=== PATIENT | female | born 1960 | race American Indian/Alaskan Native ===

== ENCOUNTER 2021-10-05 09:22 | Inpatient (IN) | payer SELFPAY ==
[2021-10-05] MEDS ORDERED: HYDROmorphone 1 MG/1 ML INJ IV ONE ×2 (11:28→15:03)
[2021-10-05] MEDS ORDERED: SODIUM CHLORIDE 0.9% 1000 ML 1,000 ML IV ONE (11:28)
[2021-10-05] MEDS ORDERED: ONDANSETRON 4 MG/2 ML INJ IV ONE (11:28)
--- NOTE | 2021-10-05 11:36 | Emergency Department Report ---
ED Abdominal Pain HPI - General Chief Complaint: Abdominal Pain Stated Complaint: ABD PAIN Time Seen by Provider: 10/05/21 11:04 Source: EMS Mode of arrival: Ambulatory Limitations: No Limitations - History of Present Illness Initial Comments: 61-year-old [place] female presents emerged part with complaining of sudden onset of left lower quadrant abdominal pain associated with the knots/ball to the left lower quadrant area when the pain began pain is is dull and throbbing worse with palpation and range of motion is associated with nausea and occasi onal diarrhea. She reports no no fever, chills, sweats. No hemoptysis no hematemesis hematochezia. MD Complaint: abdominal pain -: Sudden, This morning Radiation: LLQ Severity: moderate, severe Quality: sharp Consistency: constant - Related Data Allergies Allergy/AdvReac Type Severity Reaction Status Date / Time cephalexin [From Keflex] Allergy Hives Verified 10/05/21 09:39 meperidine [From Demerol] Allergy Hives Verified 10/05/21 09:39 ED Review of Systems ROS: Stated complaint: ABD PAIN Other details as noted in HPI Comment: All other systems reviewed and negative ED Past Medical Hx - Past Medical History Hx Hypertension: Yes ED Physical Exam - General Limitations: No Limitations General appearance: alert, in no apparent distress - Head Head exam: Present: atraumatic, normocephalic - Eye Eye exam: Present: normal appearance, PERRL, EOMI Pupils: Present: normal accommodation - ENT ENT exam: Present: normal exam, normal orophraynx, mucous membranes moist, TM's normal bilaterally - Neck Neck exam: Present: normal inspection, full ROM - Respiratory Respiratory exam: Present: normal lung sounds bilaterally. Absent: respiratory distress, wheezes, rales, chest wall tenderness, accessory muscle use, decreased breath sounds - Cardiovascular Cardiovascular Exam: Present: regular rate, normal rhythm. Absent: bradycardia, tachycardia, systolic murmur, diastolic murmur, rubs, gallop - GI/Abdominal GI/Abdominal exam: Present: soft, tenderness (Significant tenderness to left lower quadrant mass is present. Appears to be a incarcerated hernia attempts were made to reduce however was unsuccessful in reduction), normal bowel sounds, mass, hernia (Left lower quadrant ventral). Absent: organomegaly, pulsatile mass - Extremities Exam Extremities exam: Present: normal inspection, full ROM, normal capillary refill. Absent: pedal edema - Back Exam Back exam: Present: normal inspection. Absent: CVA tenderness (R), CVA tenderness (L) - Neurological Exam Neurological exam: Present: alert, oriented X3, CN II-XII intact, normal gait - Psychiatric Psychiatric exam: Present: normal affect, normal mood - Skin Skin exam: Present: warm, dry, intact, normal color. Absent: rash, diaphoretic, erythema ED Course Vital Signs 10/05/21 10/05/21 10/05/21 09:36 13:15 15:14 Temperature 98.8 F Pulse Rate 85 Respiratory 16 20 20 Rate Blood Pressure 184/98 [Right] O2 Sat by Pulse 98 Oximetry 10/05/21 15:26 Temperature Pulse Rate 98 H Respiratory 18 Rate Blood Pressure 154/63 [Right] O2 Sat by Pulse 96 Oximetry - Consultations Consultation #1: 10/05/21 12:40 Case was discussed with the attending Dr. Ahuja who had [id number] with Ms. Ty and also evaluate evaluate her abdomen. He also attempted to reduce the hernia but also was unsuccessful. Consultation #2: 10/05/21 15:31 Case discussed with the surgeon Dr. Leo who is aware of the i incarcerated hernia to the left lower quadrant and inguinal region. Plan is for him to go to the patient's bedside to attempt a reduction in further recommendations will be made pending his success ED Medical Decision Making - Lab Data Result diagrams: 10/05/21 11:49 10/05/21 11:49 - Radiology Data Radiology results: [place] [address] Cat Scan Report Signed Patient: NILDA TY MR#: [id number] : 1960 Acct:[id number] Age/Sex: 61 / F ADM Date: 10/05/21 Loc: ED Attending Dr: Ordering Physician: TOÑA CROOKS Date of Service: 10/05/21 Procedure(s): CT abdomen pelvis w con Accession Number(s): [id number] cc: TOÑA CROOKS CT ABDOMEN AND PELVIS WITH CONTRAST INDICATION / CLINICAL INFORMATION: Abdominal Pain. TECHNIQUE: Axial CT images were obtained through the abdomen and pelvis after IV contrast. All CT scans at this location are performed using CT dose reduction for ALARA by means of automated exposure control. COMPARISON: None available. FINDINGS: LOWER CHEST: No significant abnormality. LIVER: No significant abnormality. GALLBLADDER: No stones PANCREAS: No significant abnormality. SPLEEN: No significant abnormality. ADRENALS: No significant abnormality. RIGHT KIDNEY / URETER: Punctate nonobstructive intrarenal calculus superior pole. LEFT KIDNEY / URETER: No significant abnormality. STOMACH / SMALL BOWEL: There is a small single loop of small bowel which is dilated, fluid-filled within the left inguinal hernia sac. The apparent loop of the small bowel is thick walled dilated and also hypoattenuating. Overall, findings are worrisome for incarcerated loop of small bowel within the left inguinal hernia sac. COLON: No significant abnormality. APPENDIX: No significant abnormality. PERITONEUM: No free fluid, free air or organized collection. LYMPH NODES: No significant adenopathy. AORTA / ARTERIES/ VEINS: No significant abnormality. URINARY BLADDER: No significant abnormality. REPRODUCTIVE ORGANS: Calcified fibroid within the uterus. ADDITIONAL FINDINGS: None. SKELETAL SYSTEM: No significant abnormality. IMPRESSION: 1. Left inguinal hernia containing loop of mildly dilated and fluid-filled small bowel chest demonstrate some hypoenhancement compared to the small bowel within the abdomen. There is dilatation of the afferent small bowel loop within the left lower quadrant of the abdomen, just proximal to the loop within the left inguinal hernia. Overall, findings are worrisome for incarcerated small bowel loop within the left inguinal hernia. Recommend correlation with physical exam findings and consultation with general surgery as clinically indicated. There is no evidence of pneumatosis within the herniated bowel loop at this time. 2. Other chronic findings as above. Signer Name: Rohith Cardozo MD Signed: 10/05/2021 1:42 PM Workstation Name: [id number] Transcribed By: SB Dictated By: ROHITH CARDOZO MD Electronically Authenticated By: ROHITH CARDOZO MD Signed Date/Time: 10/05/21 1342 DD/ 1336 TD/TT: Print - Medical Decision Making 41-year-old male female to the emerge from complaining of left lower quadrant abdominal pain suggestive with a mass which was suggestive of hernia. She was found to have a incarcerated hernia which was attempted to be reduced by myself and the attending Dr. Ahuja unsuccessfully. Later surgeon Dr. Leo came in and was able to reduce the hernia on his home after she received 2 rounds of 1 mg Dilaudid as well as antinausea medications. Due to the nature of her pain, the migration of her pain. Her lack of appetite and her hypokalemia Dr. Leo asked that she be admitted for observation so that he can evaluate her again tomorrow and advance her diet as tolerated. This case was discussed with the attending Dr. Veloz who did acknowledge the recommendation and agreed to the admission Critical care attestation.: If time is entered above; I have spent that time in minutes in the direct care of this critically ill patient, excluding procedure time. ED Disposition Clinical Impression: Abdominal pain, Hypokalemia, Incarcerated femoral hernia Disposition: ADMITTED INPATIENT Is pt being admited?: Yes Does the pt Need Aspirin: No Condition: Stable Instructions: Abdominal Pain (ED)
--- NOTE | 2021-10-05 11:43 | Event Note ---
Date of service: 10/05/21 Face to Face: For this encounter I have reviewed the PA/[employer] documentation, treatment plan, medical decision making, and I had face to face time with this patient. Patient present with abdominal pain. She states that the pain woke her at 3 AM. This is localized to the left lower quadrant. She has noticed a mass and fullness in this area. There is no trauma reported. On exam, patient has what appears to be a hernia in the left lower abdomen. This is firm and exquisitely tender for the patient. She has voluntary guarding. With pressure, this could not be reduced. IV, labs, and CT were ordered. We will keep the patient n.p.o. She will likely need surgery.
[2021-10-05 12:12] LABS: Basophils % (Auto) 0.3 % (0.0-1.8); Eosinophils % (Auto) 0.1 % (0.0-4.3); Hematocrit 46.2 % (30.3-42.9); Hemoglobin 14.7 gm/dl (10.1-14.3); Lymphocytes # (Auto) 0.8 K/mm3 (1.2-5.4); Lymphocytes % (Auto) 9.8 % (13.4-35.0); Mean Corpuscular HGB Conc 32 % (30-34); Mean Corpuscular Volume 85 fl (79-97); Monocytes # (Auto) 0.2 K/mm3 (0.0-0.8); Monocytes % (Auto) 2.2 % (0.0-7.3); Platelet Count 261 K/mm3 (140-440); Red Blood Count 5.45 M/mm3 (3.65-5.03); Red Cell Distribution Width 13.3 % (13.2-15.2)
[2021-10-05 12:31] LABS: Blood Urea Nitrogen 20 mg/dL (7-17); Calcium 9.8 mg/dL (8.4-10.2); Hemolysis Index 5
[2021-10-05 12:32] LABS: BUN/Creatinine Ratio 40
[2021-10-05] MEDS ORDERED: METOCLOPRAMIDE 10 MG/2 ML INJ IV ONE (13:05)
[2021-10-05] MEDS ORDERED: fentaNYL 100 MCG/2 ML INJ IV ONE (13:05)
[2021-10-05 13:19] LABS: Alanine Aminotransferase 17 units/L (7-56); Albumin 4.5 g/dL (3.9-5)
[2021-10-05 13:34] LABS: Bacteria,Urine 1+ /HPF (Negative); Bilirubin,Urine NEG (Negative); Blood,Urine NEG (Negative); Color,Urine Straw (Yellow); Mucus,Urine FEW /HPF; Protein,Urine <15 mg/dL mg/dL (Negative); Urobilinogen,Urine < 2.0 mg/dL (<2.0)
[2021-10-05 13:35] LABS: Bilirubin,Direct < 0.2 mg/dL (0-0.2)
--- NOTE | 2021-10-05 13:47 | Cat Scan Report ---
CT ABDOMEN AND PELVIS WITH CONTRAST INDICATION / CLINICAL INFORMATION: Abdominal Pain. TECHNIQUE: Axial CT images were obtained through the abdomen and pelvis after IV contrast. All CT sc ans at this location are performed using CT dose reduction for ALARA by means of automated exposure c ontrol. COMPARISON: None available. FINDINGS: LOWER CHEST: No significant abnormality. LIVER: No significant abnormality. GALLBLADDER: No stones PANCREAS: No significant abnormality. SPLEEN: No significant abnormality. ADRENALS: No significant abnormality. RIGHT KIDNEY / URETER: Punctate nonobstructive intrarenal calculus superior pole. LEFT KIDNEY / URETER: No significant abnormality. STOMACH / SMALL BOWEL: There is a small single loop of small bowel which is dilated, fluid-filled wit hin the left inguinal hernia sac. The apparent loop of the small bowel is thick walled dilated and al so hypoattenuating. Overall, findings are worrisome for incarcerated loop of small bowel within the l eft inguinal hernia sac. COLON: No significant abnormality. APPENDIX: No significant abnormality. PERITONEUM: No free fluid, free air or organized collection. LYMPH NODES: No significant adenopathy. AORTA / ARTERIES/ VEINS: No significant abnormality. URINARY BLADDER: No significant abnormality. REPRODUCTIVE ORGANS: Calcified fibroid within the uterus. ADDITIONAL FINDINGS: None. SKELETAL SYSTEM: No significant abnormality. IMPRESSION: 1. Left inguinal hernia containing loop of mildly dilated and fluid-filled small bowel chest demonst rate some hypoenhancement compared to the small bowel within the abdomen. There is dilatation of the afferent small bowel loop within the left lower quadrant of the abdomen, just proximal to the loop wi thin the left inguinal hernia. Overall, findings are worrisome for incarcerated small bowel loop with in the left inguinal hernia. Recommend correlation with physical exam findings and consultation with general surgery as clinically indicated. There is no evidence of pneumatosis within the herniated bow el loop at this time. 2. Other chronic findings as above. Signer Name: Rohith Cardozo MD Signed: 10/05/2021 1:42 PM Workstation Name: [id number]
[2021-10-05] MEDS: POTASSIUM CHLORIDE 10 MEQ 10 MEQ/100 ML BAG IV SCH ×3 (14:13→22:45)
[2021-10-05] MEDS ORDERED: HYDROmorphone 1 MG/1 ML INJ IV PRN (16:12)
[2021-10-05] MEDS ORDERED: ACETAMINOPHEN 325 MG TAB PO PRN (16:12)
[2021-10-05] MEDS ORDERED: ALBUTEROL 2.5 MG/3 ML NEBU IH PRN (16:12)
[2021-10-05] MEDS ORDERED: oxyCODONE /ACETAMINOPHEN 5-325MG TAB PO PRN (16:12)
--- NOTE | 2021-10-05 16:18 | History and Physical Report ---
History of Present Illness Chief complaint: My stomach hurts History of present illness: 61 YO Female with Obesity presents to ED for evaluation. Patient reports "my stomach hurts". Patient states that she experienced a sudden onset of abdominal pain localized to the left lower quadrant today with persistent and worsening symptoms over the same timeframe. Patient states that pain is 10/10, constant, dull in nature, worsened with palpation. EMS was notified and upon arrival the patient was subsequently transported to [facility] for further care and evaluation of the aforementioned symptoms. The patient was seen and evaluated in the emergency department. All lab and imaging studies reviewed. Patient underwent CT scan of the abdomen and pelvis and was found to have evidence of incarcerated left inguinal hernia. Surgical team consulted in ED with resultant successful reduction of the hernia. Patient placed in observation status and admitted to medical floor for further care due to increased risk of worsening symptoms. Patient denies fever, chills, chest pain, palpitation, productive cough, skin rash, recent ill contacts, ingestion of food/water from new or different sources, bright red blood per rectum, trauma, or known exposure to COVID-19. Past History Past Medical History: other (See HPI) Past Surgical History: No surgical history, Other (Reviewed) Social history: single. denies: smoking, alcohol abuse, prescription drug abuse Family history: hypertension Medications and Allergies Allergies Allergy/AdvReac Type Severity Reaction Status Date / Time cephalexin [From Keflex] Allergy Hives Verified 10/05/21 09:39 meperidine [From Demerol] Allergy Hives Verified 10/05/21 09:39 Active Meds: Active Medications Acetaminophen (Acetaminophen 325 Mg Tab) 650 mg PO Q4H PRN PRN Reason: Pain MILD(1-3)/Fever >100.5/CARRILLO Albuterol (Albuterol 2.5 Mg/3 Ml Nebu) 2.5 mg IH Q4HRT PRN PRN Reason: Shortness Of Breath Hydromorphone HCl (Hydromorphone 1 Mg/1 Ml Inj) 0.5 mg IV Q12H PRN PRN Reason: Pain , Severe (7-10) Potassium Chloride (Kcl 10meq/100ml) 10 meq in 100 mls @ 100 mls/hr IV Q1H SUJATA Stop: 10/05/21 16:59 Last Admin: 10/05/21 14:13 Dose: 100 mls/hr Sodium Chloride (Nacl 0.9% 1000 Ml) 1,000 mls @ 125 mls/hr IV DIRECT SUJATA Ondansetron HCl (Ondansetron 4 Mg/2 Ml Inj) 4 mg IV Q8H PRN PRN Reason: Nausea And Vomiting Oxycodone/Acetaminophen (Oxycodone /Acetaminophen 5-325mg Tab) 1 tab PO Q16H PRN PRN Reason: Pain, Moderate (4-6) Sodium Chloride (Sodium Chloride 0.9% 10 Ml Flush Syringe) 10 ml IV BID SUJATA Sodium Chloride (Sodium Chloride 0.9% 10 Ml Flush Syringe) 10 ml IV PRN PRN PRN Reason: LINE FLUSH Review of Systems Constitutional: no weight loss, no weight gain, no fever, no chills Ears, nose, mouth and throat: no ear pain, no tinnitis, no decreased hearing, no nose pain, no nasal discharge Breasts: no change in shape, no swelling Cardiovascular: no orthopnea, no palpitations, no edema, no syncope Respiratory: no cough, no excessive sputum, no hemoptysis, no dyspnea on exertion Gastrointestinal: abdominal pain, no nausea, no vomiting, no diarrhea, no BRBPR, no melena Genitourinary Female: no pelvic pain, no flank pain, no dysuria, no urinary frequency, no stress incontinence Rectal: no pain, no incontinence Musculoskeletal: no neck stiffness, no neck pain, no shooting arm pain, no low back pain, no leg numbness/tingling Integumentary: no rash, no redness, no sores, no jaundice Neurological: no head injury, no paralysis, no weakness, no tingling, no seizures Psychiatric: no anxiety, no change in sleep habits, no sleep disturbances, no hy persomnia, no suicidal ideation Endocrine: no cold intolerance, no polyphagia, no excessive thirst, no polydipsia, no polyuria, no excessive sweating Hematologic/Lymphatic: no easy bruising, no easy bleeding Allergic/Immunologic: no urticaria, no allergic rhinitis Exam - Constitutional Vitals: Temp Pulse Resp BP Pulse Ox 98.8 F 98 H 18 154/63 96 10/05/21 09:36 10/05/21 15:26 10/05/21 15:26 10/05/21 15:26 10/05/21 15:26 General appearance: Present: mild distress - EENT Eyes: Present: PERRL ENT: hearing intact, clear oral mucosa - Neck Neck: Present: supple, normal ROM - Respiratory Respiratory effort: normal Respiratory: bilateral: CTA - Cardiovascular Heart Sounds: Present: S1 & S2. Absent: rub, click - Extremities Extremities: pulses symmetrical, No edema Peripheral Pulses: within normal limits - Abdominal General gastrointestinal: Present: soft, non-tender, non-distended, normal bowel sounds Female genitourinary: Present: normal - Integumentary Integumentary: Present: clear, warm, dry - Musculoskeletal Musculoskeletal: gait normal, strength equal bilaterally - Psychiatric Psychiatric: appropriate mood/affect, intact judgment & insight - Neurologic Neurologic: CNII-XII intact, moves all extremities Results - Labs CBC & Chem 7: 10/05/21 11:49 10/05/21 11:49 Labs: Abnormal lab results 10/05/21 10/05/21 10/05/21 Range/Units 11:49 11:49 Unknown RBC 5.45 H (3.65-5.03) M/mm3 Hgb 14.7 H (10.1-14.3) gm/dl Hct 46.2 H (30.3-42.9) % MCH 27 L (28-32) pg Lymph % (Auto) 9.8 L (13.4-35.0) % Lymph # (Auto) 0.8 L (1.2-5.4) K/mm3 Seg Neutrophils % 87.6 H (40.0-70.0) % Potassium 2.8 L* (3.6-5.0) mmol/L Chloride 97.6 L (98-107) mmol/L BUN 20 H (7-17) mg/dL Creatinine 0.5 L (0.6-1.2) mg/dL Glucose 135 H (65-100) mg/dL Urine pH 8.0 H (5.0-7.0) Assessment and Plan - Patient Problems (1) Incarcerated femoral hernia Current Visit: Yes Status: Acute Plan to address problem: Surgery team consulted. Patient incarcerated hernia reduced in the emergency department, bowel rest, IV fluid resuscitation therapy, pain control, supportive care. Further care and evaluation as per surgical team. (2) Obesity (BMI 30.0-34.9) Current Visit: Yes Status: Acute Plan to address problem: Balanced diet, increase physical activity at discharge. (3) DVT prophylaxis Current Visit: Yes Status: Acute Plan to address problem: SCD to bilateral lower extremities while in bed, patient is ambulatory (4) Advance care planning Current Visit: Yes Status: Acute Plan to address problem: Disease education conducted, care plan discussed, diagnosis discussed, prognosis discussed, patient is full code. Patient acknowledges understanding and agreement with care plan, +30 minutes.
--- NOTE | 2021-10-05 18:08 | Emergency Department Report ---
HPI - General Chief Complaint: Abdominal Pain Time Seen by Provider: 10/05/21 11:04 - HPI HPI: Fern is a 61-year-old -Citizen Of [place] lady who presents with abdominal pain. The pain is in the left upper abdomen and in the left lower abdomen into the gr oin. She has moderate obesity. She is also had a swelling in the left groin that she is reported to her PCP several years ago. CT of the abdomen and pelvis shows gallstones. No evidence of cholecystitis. There is a large femoral hernia. Most of the hernias filled with fat. There is a loop of small bowel however that is also present but does not appear to be obstructed. ED Past Medical Hx - Past Medical History Hx Hypertension: Yes - Family History Family history: no significant ED Review of Systems ROS: Stated complaint: ABD PAIN Other details as noted in HPI Physical Exam - Physical Exam Vital Signs: Vital Signs 10/05/21 10/05/21 10/05/21 09:36 13:15 15:14 Temperature 98.8 F Pulse Rate 85 Respiratory 16 20 20 Rate Blood Pressure 184/98 [Right] O2 Sat by Pulse 98 Oximetry 10/05/21 10/05/21 15:26 15:44 Temperature Pulse Rate 98 H Respiratory 18 18 Rate Blood Pressure 154/63 [Right] O2 Sat by Pulse 96 Oximetry General: General patient is oriented x3 moderate amount of distress. HEENT: Normocephalic atraumatic. Lungs: Clear to auscultation. Cor regular rate and rhythm no murmur or gallops. Abdomen is globular there is tenderness to palpation in the left upper quadrant and right upper quadrant. There is no masses detected. A left femoral coronary is located and reduced at bedside. After reduction the upper abdominal pain continues. There are no peritoneal signs. Rectal exam: Deferred. Neurologic: Cranial nerves II through XII grossly intact. ED Course Vital Signs 10/05/21 10/05/21 10/05/21 09:36 13:15 15:14 Temperature 98.8 F Pulse Rate 85 Respiratory 16 20 20 Rate Blood Pressure 184/98 [Right] O2 Sat by Pulse 98 Oximetry 10/05/21 10/05/21 15:26 15:44 Temperature Pulse Rate 98 H Respiratory 18 18 Rate Blood Pressure 154/63 [Right] O2 Sat by Pulse 96 Oximetry Because of the persisting abdominal pain after reduction of the femoral hernia I am recommending admission of the patient for observation. Patient can be adm itted on clear liquids and IV fluids for hydration. We will continue to follow patient with you. ED Medical Decision Making - Lab Data Result diagrams: 10/05/21 11:49 10/05/21 11:49 Critical care attestation.: If time is entered above; I have spent that time in minutes in the direct care of this critically ill patient, excluding procedure time. ED Disposition Disposition: ADMITTED INPATIENT Condition: Stable Instructions: Abdominal Pain (ED)
[2021-10-05] MEDS: ONDANSETRON 4 MG/2 ML INJ IV PRN (20:59)
[2021-10-05] MEDS: SODIUM CHLORIDE 0.9% 1000 ML 1,000 ML IV SCH (21:56)
[2021-10-06] MEDS ORDERED: HYDROmorphone 1 MG/1 ML INJ IV PRN (00:10)
[2021-10-06] MEDS: POTASSIUM CHLORIDE 10 MEQ 10 MEQ/100 ML BAG IV SCH ×5 (01:05→10:52)
[2021-10-06] MEDS: HYDROmorphone 1 MG/1 ML INJ IV PRN ×4 (01:06→16:30)
[2021-10-06 05:40] LABS: Blood Urea Nitrogen 9 mg/dL (7-17); Calcium 9.2 mg/dL (8.4-10.2); Hemolysis Index 9
[2021-10-06 05:43] LABS: BUN/Creatinine Ratio 18
--- NOTE | 2021-10-06 07:45 | Progress Note ---
Assessment and Plan Femoral hernia is not reducible today at the bedside. CT scan of the abdomen continues to indicate incarceration of fat and a loop of small bowel. Patient's white count is 10,000. Have discussed the case with anesthesia. They agree to aggressively replace potassium through the morning. We will repeat the potassium and plan to do a r epair of the ventral hernia and reduction of the incarcerated small bowel at around 12 or 1230 today. Subjective Date of service: 10/06/21 Patient Reports: Positive: still having pain Narrative: Patient with left femoral hernia that was successfully reduced in the emergency room last night. Swelling and pain returned through the night. Patient denies nausea and vomiting at this time. Her potassium also has not improved and is 2.4 this morning. Surgical options discussed with the patient. An open femoral repair with mesh traditionally has a higher rate of recurrence. Laparoscopic approach to the problem has a higher rate of success and less postoperative pain and disability. Plan to repeat the CT without contrast this morning to assess whether the small bowel is again involved with the incarceration. We'll replace potassium this morning and try to bring it closer to normal through the day. Objective Vital Signs - 12hr 10/05/21 10/05/21 10/06/21 20:52 22:26 01:06 Temperature 99.7 F H Pulse Rate 95 H Respiratory 18 17 Rate Blood Pressure 173/79 Blood Pressure [Right] O2 Sat by Pulse 98 94 Oximetry 10/06/21 10/06/21 10/06/21 04:17 05:30 06:29 Temperature 99.1 F Pulse Rate 92 H Respiratory 18 18 17 Rate Blood Pressure 185/102 Blood Pressure 160/84 [Right] O2 Sat by Pulse 95 96 Oximetry - Labs 10/06/21 08:15 10/06/21 04:04 Diabetes panel 10/05/21 10/05/21 10/06/21 Range/Units 11:49 11:49 04:04 Sodium 140 135 L (137-145) mmol/L Potassium 2.8 L* 2.4 L* (3.6-5.0) mmol/L Chloride 97.6 L 94.0 L (98-107) mmol/L Carbon Dioxide 28 27 (22-30) mmol/L BUN 20 H 9 (7-17) mg/dL Creatinine 0.5 L 0.5 L (0.6-1.2) mg/dL Glucose 135 H 124 H (65-100) mg/dL Calcium 9.8 9.2 (8.4-10.2) mg/dL AST 16 (5-40) units/L ALT 17 (7-56) units/L Alkaline Phosphatase 85 (35-129) units/L Total Protein 8.0 (6.3-8.2) g/dL Albumin 4.5 (3.9-5) g/dL Calcium panel 10/05/21 10/05/21 10/06/21 Range/Units 11:49 11:49 04:04 Calcium 9.8 9.2 (8.4-10.2) mg/dL Albumin 4.5 (3.9-5) g/dL Pituitary panel 10/05/21 10/06/21 Range/Units 11:49 04:04 Sodium 140 135 L (137-145) mmol/L Potassium 2.8 L* 2.4 L* (3.6-5.0) mmol/L Chloride 97.6 L 94.0 L (98-107) mmol/L Carbon Dioxide 28 27 (22-30) mmol/L BUN 20 H 9 (7-17) mg/dL Creatinine 0.5 L 0.5 L (0.6-1.2) mg/dL Glucose 135 H 124 H (65-100) mg/dL Calcium 9.8 9.2 (8.4-10.2) mg/dL Adrenal panel 10/05/21 10/05/21 10/06/21 Range/Units 11:49 11:49 04:04 Sodium 140 135 L (137-145) mmol/L Potassium 2.8 L* 2.4 L* (3.6-5.0) mmol/L Chloride 97.6 L 94.0 L (98-107) mmol/L Carbon Dioxide 28 27 (22-30) mmol/L BUN 20 H 9 (7-17) mg/dL Creatinine 0.5 L 0.5 L (0.6-1.2) mg/dL Glucose 135 H 124 H (65-100) mg/dL Calcium 9.8 9.2 (8.4-10.2) mg/dL Total Bilirubin 0.30 (0.1-1.2) mg/dL AST 16 (5-40) units/L ALT 17 (7-56) units/L Alkaline Phosphatase 85 (35-129) units/L Total Protein 8.0 (6.3-8.2) g/dL Albumin 4.5 (3.9-5) g/dL
[2021-10-06] MEDS ORDERED: MAGNESIUM SULFATE 1 GM in SODIUM CHLORIDE 0.9% 50 ML IV ONE (07:48)
[2021-10-06] MEDS ORDERED: POTASSIUM CHLORIDE ER 20 MEQ TAB PO ONE (07:49)
[2021-10-06] MEDS ORDERED: oxyCODONE /ACETAMINOPHEN 5-325MG TAB PO PRN (07:51)
[2021-10-06] MEDS ORDERED: hydrALAZINE 20 MG/1 ML INJ IV PRN (07:56)
--- NOTE | 2021-10-06 07:57 | Progress Note ---
Assessment and Plan Assessment and plan: 61 YO Female with Obesity presents to ED for evaluation. Patient reports "my stomach hurts". Patient states that she experienced a sudden onset of abdominal pain localized to the left lower quadrant today with persistent and worsening symptoms over the same timeframe. Patient states that pain is 10/10, constant, dull in nature, worsened with palpation. EMS was notified and upon arrival the patient was subsequently transported to [facility] for further care and evaluation of the aforementioned symptoms. The patient was seen and evaluated in the emergency department. All lab and imaging studies reviewed. Patient underwent CT scan of the abdomen and pelvis and was found to have evidence of incarcerated left inguinal hernia. Surgical team consulted in ED with resultant successful reduction of the hernia. Patient placed in observation status and admitted to medical floor for further care due to increased risk of worsening symptoms. Patient denies fever, chills, chest pain, palpitation, productive cough, skin rash, recent ill contacts, ingestion of food/water from new or different sources, bright red blood per rectum, trauma, or known exposure to COVID-19. Incarcerated left-sided femoral hernia Hypertensive Urgency Severe Hypokalemia Hyponatremia Morbid obesity Plan 10/06: Despite reduction done in the ER hernia appears to have recurred. Discussed with surgeon planning for surgical approach in a.m.. At this time we will correct potassium and other electrolyte abnormalities. Repeat CT scan is pending per surgical team. Balanced diet, increase physical activity at discharge. Continue antiemetic medication Start patient's home dose oral antihypertensives and also hydralazine as needed We will hold home dose of aspirin in anticipation for surgery Patient can eat clear liquid diet today and be n.p.o. after midnight Plan discussed with the patient and the nurse at bedside DVT and GI prophylaxis History Interval history: Patient seen and examined still with left lower extremity discomfort still nauseated. Hospitalist Physical - Physical exam Narrative exam: General appearance: Present: mild distress, just appears uncomfortable. Morbid obesity - EENT Eyes: Present: PERRL ENT: hearing intact, clear oral mucosa - Neck Neck: Present: supple, normal ROM - Respiratory Respiratory effort: normal Respiratory: bilateral: CTA - Cardiovascular Heart Sounds: Present: S1 & S2. Absent: rub, click - Extremities Extremities: pulses symmetrical, No edema Peripheral Pulses: within normal limits - Abdominal General gastrointestinal: Present: soft, non-tender, non-distended, normal bowel sounds Female genitourinary: Present: normal - Integumentary Integumentary: Present: clear, warm, dry - Musculoskeletal Musculoskeletal: strength equal bilaterally, gait not assessed at this time some discomfort on the left inguinal to femoral area. Bulging noted at the time. - Psychiatric Psychiatric: appropriate mood/affect, intact judgment & insight - Neurologic Neurologic: CNII-XII intact, moves all extremities - Constitutional Vitals: Temp Pulse Resp BP Pulse Ox 99.1 F 92 H 17 160/84 96 10/06/21 04:17 10/06/21 04:17 10/06/21 06:29 10/06/21 05:30 10/06/21 05:30 General appearance: Present: mild distress Results - Labs CBC & Chem 7: 10/06/21 08:15 10/06/21 04:04 Labs: Laboratory Last Values WBC 7.8 K/mm3 (4.5-11.0) 10/05/21 11:49 RBC 5.45 M/mm3 (3.65-5.03) H 10/05/21 11:49 Hgb 14.7 gm/dl (10.1-14.3) H 10/05/21 11:49 Hct 46.2 % (30.3-42.9) H 10/05/21 11:49 MCV 85 fl (79-97) 10/05/21 11:49 MCH 27 pg (28-32) L 10/05/21 11:49 MCHC 32 % (30-34) 10/05/21 11:49 RDW 13.3 % (13.2-15.2) 10/05/21 11:49 Plt Count 261 K/mm3 (140-440) 10/05/21 11:49 Lymph % (Auto) 9.8 % (13.4-35.0) L 10/05/21 11:49 Wise % (Auto) 2.2 % (0.0-7.3) 10/05/21 11:49 Eos % (Auto) 0.1 % (0.0-4.3) 10/05/21 11:49 Baso % (Auto) 0.3 % (0.0-1.8) 10/05/21 11:49 Lymph # (Auto) 0.8 K/mm3 (1.2-5.4) L 10/05/21 11:49 Wise # (Auto) 0.2 K/mm3 (0.0-0.8) 10/05/21 11:49 Eos # (Auto) 0.0 K/mm3 (0.0-0.4) 10/05/21 11:49 Baso # (Auto) 0.0 K/mm3 (0.0-0.1) 10/05/21 11:49 Seg Neutrophils % 87.6 % (40.0-70.0) H 10/05/21 11:49 Seg Neutrophils # 6.8 K/mm3 (1.8-7.7) 10/05/21 11:49 Sodium 135 mmol/L (137-145) L 10/06/21 04:04 Potassium 2.4 mmol/L (3.6-5.0) L* 10/06/21 04:04 Chloride 94.0 mmol/L (98-107) L 10/06/21 04:04 Carbon Dioxide 27 mmol/L (22-30) 10/06/21 04:04 Anion Gap 16 mmol/L 10/06/21 04:04 BUN 9 mg/dL (7-17) 10/06/21 04:04 Creatinine 0.5 mg/dL (0.6-1.2) L 10/06/21 04:04 Estimated GFR > 60 ml/min 10/06/21 04:04 BUN/Creatinine Ratio 18 % 10/06/21 04:04 Glucose 124 mg/dL (65-100) H 10/06/21 04:04 Calcium 9.2 mg/dL (8.4-10.2) 10/06/21 04:04 Total Bilirubin 0.30 mg/dL (0.1-1.2) 10/05/21 11:49 Direct Bilirubin < 0.2 mg/dL (0-0.2) 10/05/21 11:49 Indirect Bilirubin 0.1 mg/dL 10/05/21 11:49 AST 16 units/L (5-40) 10/05/21 11:49 ALT 17 units/L (7-56) 10/05/21 11:49 Alkaline Phosphatase 85 units/L (35-129) 10/05/21 11:49 Total Protein 8.0 g/dL (6.3-8.2) 10/05/21 11:49 Albumin 4.5 g/dL (3.9-5) 10/05/21 11:49 Albumin/Globulin Ratio 1.5 % 10/05/21 11:49 Lipase 16 units/L (13-60) 10/05/21 11:49 Urine Color Straw (Yellow) 10/05/21 Unknown Urine Turbidity Clear (Clear) 10/05/21 Unknown Urine pH 8.0 (5.0-7.0) H 10/05/21 Unknown Ur Specific [place] 1.010 (1.003-1.030) 10/05/21 Unknown Urine Protein <15 mg/dl mg/dL (Negative) 10/05/21 Unknown Urine Glucose (UA) 50 mg/dL (Negative) 10/05/21 Unknown Urine Ketones Neg mg/dL (Negative) 10/05/21 Unknown Urine Blood Neg (Negative) 10/05/21 Unknown Urine Nitrite Neg (Negative) 10/05/21 Unknown Urine Bilirubin Neg (Negative) 10/05/21 Unknown Urine Urobilinogen < 2.0 mg/dL (<2.0) 10/05/21 Unknown Ur Leukocyte Esterase Neg (Negative) 10/05/21 Unknown Urine WBC (Auto) 2.0 /HPF (0.0-6.0) 10/05/21 Unknown Urine RBC (Auto) 2.0 /HPF (0.0-6.0) 10/05/21 Unknown U Epithel Cells (Auto) 2.0 /HPF (0-13.0) 10/05/21 Unknown Urine Bacteria (Auto) 1+ /HPF (Negative) 10/05/21 Unknown Urine Mucus Few /HPF 10/05/21 Unknown Jama/IV: Voiding Method Toilet Active Medications - Current Medications Current Medications: Generic Name Dose Route Start Last Admin Trade Name Freq PRN Reason Stop Dose Admin Acetaminophen 650 mg 10/05/21 16:12 Acetaminophen 325 Mg Tab PO Q4H PRN Pain MILD(1-3)/Fever >100.5/CARRILLO Albuterol 2.5 mg 10/05/21 16:12 Albuterol 2.5 Mg/3 Ml Nebu IH Q4HRT PRN Shortness Of Breath Amlodipine Besylate 10 mg 10/06/21 10:00 Amlodipine 10 Mg Tab PO DAILY SUJATA Hydralazine HCl 10 mg 10/06/21 07:56 Hydralazine 20 Mg/1 Ml Inj IV Q4HR PRN Hypertension Hydromorphone HCl 1 mg 10/06/21 07:53 Hydromorphone 1 Mg/1 Ml Inj IM Q4H PRN Pain , Severe (7-10) Sodium Chloride 1,000 mls @ 125 mls/hr 10/05/21 16:19 10/05/21 21:56 Nacl 0.9% 1000 Ml IV 125 mls/hr DIRECT SUJATA Administration Potassium Chloride 10 meq in 100 mls @ 100 mls/hr 10/06/21 06:11 10/06/21 06:45 Kcl 10meq/100ml IV 10/06/21 09:59 100 mls/hr Q1HR SUJATA Administration Magnesium Sulfate 1 gm/ Sodium 52 mls @ 52 mls/hr 10/06/21 07:48 Chloride IV 10/06/21 08:47 ONCE ONE Ondansetron HCl 4 mg 10/05/21 16:12 10/05/21 20:59 Ondansetron 4 Mg/2 Ml Inj IV 4 mg Q8H PRN Administration Nausea And Vomiting Oxycodone/Acetaminophen 1 tab 10/06/21 07:51 Oxycodone /Acetaminophen 5-325mg Tab PO Q6H PRN Pain, Moderate (4-6) Sodium Chloride 10 ml 10/05/21 22:00 10/05/21 21:54 Sodium Chloride 0.9% 10 Ml Flush Syringe IV 10 ml BID SUJATA Administration Sodium Chloride 10 ml 10/05/21 16:12 Sodium Chloride 0.9% 10 Ml Flush Syringe IV PRN PRN LINE FLUSH
[2021-10-06] MEDS: HYDROmorphone 1 MG/1 ML INJ IM PRN ×2 (08:27→23:44)
--- NOTE | 2021-10-06 08:47 | Cat Scan Report ---
CT ABDOMEN AND PELVIS WITHOUT CONTRAST INDICATION / CLINICAL INFORMATION: abdomenal pain, Inguinal hernia. TECHNIQUE: Axial CT images were obtained through the abdomen and pelvis without IV contrast. All CT scans at this location are performed using CT dose reduction for ALARA by means of automated exposure control. COMPARISON: 10/05/2021 FINDINGS: LOWER CHEST: No significant abnormality. LIVER: No significant abnormality. GALLBLADDER: Gallstones PANCREAS: No significant abnormality. SPLEEN: No significant abnormality. ADRENALS: No significant abnormality. RIGHT KIDNEY / URETER: No significant abnormality. LEFT KIDNEY / URETER: No significant abnormality. STOMACH / SMALL BOWEL: Small loop of small bowel is again noted within the left inguinal hernia sac. There is slight decrease in amount of fluid filled distention of this herniated small bowel loop. How ever, the afferent loop within the abdomen demonstrates increased in gas and fluid-filled distention, measuring up to 3.5 cm in diameter. No evidence of pneumatosis of the herniated small bowel loop. Th ere is some edema noted within the herniated fat of the left inguinal hernia sac. COLON: No significant abnormality. APPENDIX: No significant abnormality. PERITONEUM: No free fluid, free air or organized collection. LYMPH NODES: No significant adenopathy. AORTA / ARTERIES/ VEINS: No significant abnormality. URINARY BLADDER: No significant abnormality. REPRODUCTIVE ORGANS: Fibroid. ADDITIONAL FINDINGS: None. SKELETAL SYSTEM: No significant abnormality. IMPRESSION: 1. Small loop of small bowel is again noted within the left inguinal hernia sac. Slight decrease in amount of fluid-filled distention of the herniated small bowel loop. However, the afferent loop of leydi wel within the abdomen demonstrates increased gas and fluid distention measuring up to 3.5 cm in diam eter today. Findings could reflect early/developing low-grade small bowel obstruction, although most of the small bowel loops within the abdomen are normal in caliber. No pneumatosis within the herniate d small bowel loop. Persistent edema of the fat in the left inguinal hernia sac, not significantly ch anged with yesterday. 2. Other chronic findings as above, unchanged. Signer Name: Rohith Cardozo MD Signed: 10/06/2021 8:43 AM Workstation Name: [id number]
[2021-10-06 09:10] LABS: Basophils % (Auto) 0.3 % (0.0-1.8); Eosinophils % (Auto) 0.1 % (0.0-4.3); Hematocrit 46.4 % (30.3-42.9); Hemoglobin 15.4 gm/dl (10.1-14.3); Lymphocytes % (Auto) 19.4 % (13.4-35.0); Mean Corpuscular HGB Conc 33 % (30-34); Mean Corpuscular Volume 85 fl (79-97); Monocytes # (Auto) 0.8 K/mm3 (0.0-0.8); Monocytes % (Auto) 8.3 % (0.0-7.3); Platelet Count 296 K/mm3 (140-440); Red Blood Count 5.47 M/mm3 (3.65-5.03); Red Cell Distribution Width 13.3 % (13.2-15.2)
[2021-10-06] MEDS: amLODIPine 10 MG TAB PO SCH (09:42)
[2021-10-06] MEDS: ONDANSETRON 4 MG/2 ML INJ IV PRN (09:47)
[2021-10-06] MEDS ORDERED: LIDOCAINE (1%) 10 MG/1 ML VIAL 20 ML MDV ONE (10:34)
[2021-10-06] MEDS ORDERED: BUPIVACAINE/PF (0.5%) 5 MG/1 ML 30 ML VIAL INFILTRATI ONE (10:34)
[2021-10-06] MEDS ORDERED: ROCURONIUM 50 MG/5 ML INJ IV ONE (12:28)
[2021-10-06] MEDS ORDERED: HYDROmorphone 1 MG/1 ML INJ ONE (12:28)
[2021-10-06] MEDS ORDERED: propofoL 200 MG/20 ML VIAL IV ONE (12:28)
[2021-10-06] MEDS ORDERED: SUCCINYLCHOLINE CHLORIDE 200 MG/10 ML INJ MDV ONE (12:28)
--- NOTE | 2021-10-06 12:28 | Consultation ---
History of Present Illness Consult date: 10/05/21 Reason for consult: abdominal pain - History of present illness History of present illness: Fern is a 61-year-old -[place] lady who presents with abdominal pain. The pain is in the left upper abdomen and in the left lower abdomen into the groin. She has moderate obesity. She is also had a swelling in the left groin that she is reported to her PCP several years ago. CT of the abdomen and pelvis shows gallstones. No evidence of cholecystitis. There is a large femoral hernia. Most of the hernias filled with fat. There is a loop of small bowel however that is also present but does not appear to be obstructed. Past History Past Medical History: other (See HPI) Past Surgical History: No surgical history, Other (Reviewed) Social history: single. denies: smoking, alcohol abuse, prescription drug abuse Family history: hypertension Medications and Allergies Allergies Allergy/AdvReac Type Severity Reaction Status Date / Time cephalexin [From Keflex] Allergy Hives Verified 10/05/21 09:39 meperidine [From Demerol] Allergy Hives Verified 10/05/21 09:39 Home Medications Medication Instructions Recorded Confirmed Last Taken Type Aspirin [Adult Aspirin] 81 mg PO DAILY 10/06/21 10/06/21 10/04/21 08:50 History amLODIPine [Norvasc] 10 mg PO DAILY 10/06/21 10/06/21 10/04/21 08:45 History Active Meds: Active Medications Acetaminophen (Acetaminophen 325 Mg Tab) 650 mg PO Q4H PRN PRN Reason: Pain MILD(1-3)/Fever >100.5/CARRILLO Albuterol (Albuterol 2.5 Mg/3 Ml Nebu) 2.5 mg IH Q4HRT PRN PRN Reason: Shortness Of Breath Amlodipine Besylate (Amlodipine 10 Mg Tab) 10 mg PO DAILY SUJATA Last Admin: 10/06/21 09:42 Dose: 10 mg Hydralazine HCl (Hydralazine 20 Mg/1 Ml Inj) 10 mg IV Q4HR PRN PRN Reason: Hypertension Hydromorphone HCl (Hydromorphone 1 Mg/1 Ml Inj) 1 mg IM Q4H PRN PRN Reason: Pain , Severe (7-10) Last Admin: 10/06/21 08:27 Dose: 1 mg Sodium Chloride (Nacl 0.9% 1000 Ml) 1,000 mls @ 125 mls/hr IV DIRECT SUJATA Last Admin: 10/05/21 21:56 Dose: 125 mls/hr Ondansetron HCl (Ondansetron 4 Mg/2 Ml Inj) 4 mg IV Q8H PRN PRN Reason: Nausea And Vomiting Last Admin: 10/06/21 09:47 Dose: 4 mg Oxycodone/Acetaminophen (Oxycodone /Acetaminophen 5-325mg Tab) 1 tab PO Q6H PRN PRN Reason: Pain, Moderate (4-6) Sodium Chloride (Sodium Chloride 0.9% 10 Ml Flush Syringe) 10 ml IV BID SUJATA Last Admin: 10/06/21 10:53 Dose: 10 ml Sodium Chloride (Sodium Chloride 0.9% 10 Ml Flush Syringe) 10 ml IV PRN PRN PRN Reason: LINE FLUSH Exam Vital Signs Temp Pulse Resp BP Pulse Ox 98.8 F 85 16 184/98 98 10/05/21 09:36 10/05/21 09:36 10/05/21 09:36 10/05/21 09:36 10/05/21 09:36 - General physical appearance Positive: well developed, moderate distress - Eyes Positive: PERRL - Neck Positive: no masses, no bruits, trachea midline - Respiratory Positive: normal expansion, clear to auscultation - Cardiovascular Rhythm: regular - Extremities Extremities: no ischemia, No edema - Abdomen Abdomen: Present: tender Hernia: reducible, femoral - Neurologic Neurologic: alert and oriented to time, place and person, motor strength and sensation are grossly intact, CN II-XII intact Results - Labs 10/06/21 08:15 10/06/21 04:04 Abnormal lab results 10/05/21 10/05/21 10/06/21 Range/Units 11:49 Unknown 04:04 RBC (3.65-5.03) M/mm3 Hgb (10.1-14.3) gm/dl Hct (30.3-42.9) % [place] % (Auto) (0.0-7.3) % Seg Neutrophils % (40.0-70.0) % Sodium 135 L (137-145) mmol/L Potassium 2.8 L* 2.4 L* (3.6-5.0) mmol/L Chloride 97.6 L 94.0 L (98-107) mmol/L BUN 20 H (7-17) mg/dL Creatinine 0.5 L 0.5 L (0.6-1.2) mg/dL Glucose 135 H 124 H (65-100) mg/dL Urine pH 8.0 H (5.0-7.0) 10/06/21 Range/Units 08:15 RBC 5.47 H (3.65-5.03) M/mm3 Hgb 15.4 H (10.1-14.3) gm/dl Hct 46.4 H (30.3-42.9) % [place] % (Auto) 8.3 H (0.0-7.3) % Seg Neutrophils % 71.9 H (40.0-70.0) % Sodium (137-145) mmol/L Potassium (3.6-5.0) mmol/L Chloride (98-107) mmol/L BUN (7-17) mg/dL Creatinine (0.6-1.2) mg/dL Glucose (65-100) mg/dL Urine pH (5.0-7.0) Diabetes panel 10/05/21 10/05/21 10/06/21 Range/Units 11:49 11:49 04:04 Sodium 140 135 L (137-145) mmol/L Potassium 2.8 L* 2.4 L* (3.6-5.0) mmol/L Chloride 97.6 L 94.0 L (98-107) mmol/L Carbon Dioxide 28 27 (22-30) mmol/L BUN 20 H 9 (7-17) mg/dL Creatinine 0.5 L 0.5 L (0.6-1.2) mg/dL Glucose 135 H 124 H (65-100) mg/dL Calcium 9.8 9.2 (8.4-10.2) mg/dL AST 16 (5-40) units/L ALT 17 (7-56) units/L Alkaline Phosphatase 85 (35-129) units/L Total Protein 8.0 (6.3-8.2) g/dL Albumin 4.5 (3.9-5) g/dL Calcium panel 10/05/21 10/05/21 10/06/21 Range/Units 11:49 11:49 04:04 Calcium 9.8 9.2 (8.4-10.2) mg/dL Albumin 4.5 (3.9-5) g/dL Pituitary panel 10/05/21 10/06/21 Range/Units 11:49 04:04 Sodium 140 135 L (137-145) mmol/L Potassium 2.8 L* 2.4 L* (3.6-5.0) mmol/L Chloride 97.6 L 94.0 L (98-107) mmol/L Carbon Dioxide 28 27 (22-30) mmol/L BUN 20 H 9 (7-17) mg/dL Creatinine 0.5 L 0.5 L (0.6-1.2) mg/dL Glucose 135 H 124 H (65-100) mg/dL Calcium 9.8 9.2 (8.4-10.2) mg/dL Adrenal panel 10/05/21 10/05/21 10/06/21 Range/Units 11:49 11:49 04:04 Sodium 140 135 L (137-145) mmol/L Potassium 2.8 L* 2.4 L* (3.6-5.0) mmol/L Chloride 97.6 L 94.0 L (98-107) mmol/L Carbon Dioxide 28 27 (22-30) mmol/L BUN 20 H 9 (7-17) mg/dL Creatinine 0.5 L 0.5 L (0.6-1.2) mg/dL Glucose 135 H 124 H (65-100) mg/dL Calcium 9.8 9.2 (8.4-10.2) mg/dL Total Bilirubin 0.30 (0.1-1.2) mg/dL AST 16 (5-40) units/L ALT 17 (7-56) units/L Alkaline Phosphatase 85 (35-129) units/L Total Protein 8.0 (6.3-8.2) g/dL Albumin 4.5 (3.9-5) g/dL Assessment and Plan Because of the persisting abdominal pain after reduction of the femoral hernia I am recommending admission of the patient for observation. Patient can be admitted on clear liquids and IV fluids for hydration. We will continue to follow patient with you.
[2021-10-06] MEDS ORDERED: LIDOCAINE MPF (2%) 20 MG/1 ML VIAL 5 ML ONE (12:29)
--- NOTE | 2021-10-06 12:32 | Anesthesia Day of Surgery ---
Anesthesia Day of Surgery - Day of Surgery Patient Examined: Yes Patient H&P Reviewed: Yes Patient is NPO: Yes
--- NOTE | 2021-10-06 12:32 | Anesthesia Consultation ---
Anesthesia Consult and Med Hx Date of service: 10/06/21 - Airway Anesthetic Teeth Evaluation: Good ROM Head & Neck: Adequate Mental/Hyoid Distance: Adequate Mallampati Class: Class III Intubation Access Assessment: Possibly Difficult - Pre-Operative Health Status ASA Pre-Surgery Classification: ASA3 Proposed Anesthetic Plan: General - Pulmonary Hx Smoking: Yes (1/2PPD) Hx Respiratory Symptoms: No Hx Sleep Apnea: No (high STOP BANG score but has not had sleep study) - Cardiovascular System Hx Hypertension: Yes (received amlodipine this morning) Hx Heart Attack/AMI: No Hx Percutaneous Transluminal Coronary Angioplasty (PTCA): No - Central Nervous System CVA: No - Endocrine Hx Renal Disease: No Hx Liver Disease: No Hx Insulin Dependent Diabetes: No Hx Non-Insulin Dependent Diabetes: No Hx Thyroid Disease: No - Hematic Hx Anemia: No - Other Systems Hx Obesity: Yes (BMI 43) - Additional Comments Anesthesia Medical History Comments: Patient with incarcerated inguinal hernia scheduled for repair. Labs significant for hypokalemia with IV and PO replacement ongoing.
[2021-10-06] MEDS ORDERED: POTASSIUM CHLORIDE 10 MEQ 20 MEQ/200 ML BAG IV ONE (12:38)
[2021-10-06] MEDS ORDERED: LACTATED RINGERS 1,000 ML ONE ×2 (13:06→14:21)
[2021-10-06] MEDS ORDERED: ceFAZolin/Water 2 GM/20 ML 2 GM/20 ML SYRINGE IV ONE (13:34)
[2021-10-06] MEDS ORDERED: LIDOCAINE (1%) 10 MG/1 ML VIAL 20 ML MDV INFILTRATI ONE (14:31)
[2021-10-06] MEDS ORDERED: SODIUM CHLORIDE 0.9% IRR 1,500 ML BOTTLE IR ONE (14:31)
[2021-10-06] MEDS ORDERED: BUPIVACAINE/PF (0.25%) 2.5 MG/ML 30 ML VIAL INFILTRATI ONE (14:31)
[2021-10-06] MEDS ORDERED: ONDANSETRON 4 MG/2 ML INJ IV PRN (15:03)
[2021-10-06] MEDS ORDERED: GLYCOPYRROLATE 0.4 MG/2 ML INJ ONE (15:20)
[2021-10-06] MEDS ORDERED: NEOSTIGMINE 10MG/10 ML INJ MDV ONE (15:20)
[2021-10-06] MEDS ORDERED: ONDANSETRON 4 MG/2 ML INJ ONE (15:21)
[2021-10-06] MEDS ORDERED: KETOROLAC 30 MG/1 ML INJ ONE (15:21)
--- NOTE | 2021-10-06 15:49 | Operative Report ---
Operative Report Operative Report: Date: 10/06/2021 Preop diagnosis: Left femoral hernia with incarceration of small bowel and omentum Postop diagnosis: Same Procedure: Laparoscopic exploration, open left groin exploration, partial omentectomy, reduction of small bowel incarceration, repair of left femoral hernia Surgeon: Dr. Leo Soup Person: Dr. Chavez Anesthesia: General endotracheal anesthesia Estimated blood loss: 20 cc Specimen: Partial omentectomy with necrosis, hernia sac Procedure: This patient was admitted with left groin pain. CT scan confirmed a femoral hernia with incarceration of omentum and small bowel. Patient is taken to the OR and the consent is confirmed to be on the chart timeouts are completed. Patient received 2 g of IV Ancef. A Jama catheter was placed. The abdomen is prepped with ChloraPrep and draped in a sterile fashion. A 5 mm incision is made in the upper mid abdomen. A 5 mm Visiport is used to gain access to the abdominal cavity and to insufflate the peritoneal cavity. There is no evidence of any gross peritoneal soilage at this time. The hernia is located on the left side. 2 additional 5 mm ports were placed 1 in the left hypogastric area and a second 1 just medial to the superior anterior iliac spine. With the placement assistant externally trying to reduce the hernia and soft touch gr aspers used laparoscopically an attempt was made to reduce the omentum and the small bowel but this was not successful. A left groin incision was then made. The subcutaneous tissue was divided with electrocautery and Metzenbaum scissors overlying the hernia sac. The hernia sac is entered and maroon-colored fluid evacuated. The omentum is ischemic. The small bowel is with venous condition congestion. The small bowel was reduced back into the abdomen. The omentum is divided between clamps and a partial omentectomy is completed. This is done between hemostats and using 2-0 Vicryl ties. The omentum is reduced through the hernia defect. The hernia sac is dissected free of the surrounding tissues and is confirmed to be through the femoral canal immediately adjacent to the femoral vasal vessels. An 0 Prolene suture [id number] is used to close the hernia defect taking care not to injure the femoral vein. The groin wound is irrigated with copious amounts of saline and then packed with a Betadine soaked gauze. Insufflation is returned to the abdomen and exploration of the abdomen is done. The reduced segment of small bowel is identified and inspected. It is no longer ischemic appearing and no small bowel resection is done. The peritoneal cavity is irrigated with copious amounts of saline. The 5 Carrasco ports are allowed to evacuate the CO2. They were then removed. Wounds are closed with Dermabond and 4-0 Monocryl. Sponge counts needle counts are confirmed to be correct. The groin exploration is closed in layers using eight 2-0 Vicryl for the subcutaneous tissue. 4-0 Monocryl was used for the skin followed by Dermabond.
[2021-10-06] MEDS: hydrALAZINE 20 MG/1 ML INJ IV PRN ×2 (16:00→16:20)
[2021-10-06] MEDS: SODIUM CHLORIDE 0.9% 1000 ML 1,000 ML IV SCH (23:50)
[2021-10-07] MEDS: HYDROmorphone 1 MG/1 ML INJ IM PRN ×2 (05:53→09:02)
--- NOTE | 2021-10-07 07:54 | Progress Note ---
Assessment and Plan Status post repair of femoral hernia postop day #1. Advance to full liquids. May discharge when tolerating full liquids. Follow-up with me in 1 week. Patient will need to avoid heavy lifting for 4 to 6 weeks. Subjective Date of service: 10/07/21 Narrative: Patient is postop day 1 #1 status post open repair of ventral hernia reduction of incarcerated small bowel. Although the small bowel did not require resection it was edematous. Would advance to a soft diet with caution. We will advance to full liquids at this time. Patient can be discharged on full liquids. Objective Vital Signs - 12hr 10/06/21 10/06/21 10/06/21 22:00 23:06 23:44 Temperature 98.2 F Pulse Rate 115 H Respiratory 20 17 Rate Blood Pressure 147/76 O2 Sat by Pulse 96 97 Oximetry 10/07/21 10/07/21 04:47 05:53 Temperature 97.9 F Pulse Rate 90 Respiratory 20 17 Rate Blood Pressure 109/61 O2 Sat by Pulse 96 Oximetry - Labs 10/06/21 08:15 10/06/21 12:10 Diabetes panel 10/06/21 Range/Units 12:10 Potassium 3.0 L D (3.6-5.0) mmol/L Pituitary panel 10/06/21 Range/Units 12:10 Potassium 3.0 L D (3.6-5.0) mmol/L Adrenal panel 10/06/21 Range/Units 12:10 Potassium 3.0 L D (3.6-5.0) mmol/L
--- NOTE | 2021-10-07 08:10 | Discharge Summary ---
Providers - Providers Date of Admission: 10/06/21 07:54 Attending physician: DONNY HANCOCK MD 10/05/21 16:12 Consult to Physician [CONS] Routine Comment: Consulting Provider: DIAZ ALBRIGHT Physician Instructions: Reason For Exam: incarcerated hernia Hospitalization Reason for admission: mallory claros Condition: Stable Hospital course: 61 YO Female with Obesity presents to ED for evaluation. Patient reports "my stomach hurts". Patient states that she experienced a sudden onset of abdominal pain localized to the left lower quadrant today with persistent and worsening symptoms over the same timeframe. Patient states that pain is 10/10, constant, dull in nature, worsened with palpation. EMS was notified and upon arrival the patient was subsequently transported to [facility] for further care and evaluation of the aforementioned symptoms. The patient was seen and evaluated in the emergency department. All lab and imaging studies reviewed. Patient underwent CT scan of the abdomen and pelvis and was found to have evidence of incarcerated left inguinal hernia. Surgical team consulted in ED with resultant successful reduction of the hernia. Patient placed in observation status and admitted to medical floor for further care due to increased risk of worsening symptoms. Patient denies fever, chills, chest pain, palpitation, productive cough, skin rash, recent ill contacts, ingestion of food/water from new or different sources, bright red blood per rectum, trauma, or known exposure to COVID-19. Incarcerated left-sided femoral hernia s/p repair Hypertensive Urgency Severe Hypokalemia Hyponatremia Morbid obesity Plan 10/06: Despite reduction done in the ER hernia appears to have recurred. Discussed with surgeon planning for surgical approach in a.m.. At this time we will correct potassium and other electrolyte abnormalities. Repeat CT scan is pending per surgical team. Balanced diet, increase physical activity at discharge. Continue antiemetic medication Start patient's home dose oral antihypertensives and also hydralazine as needed We will hold home dose of aspirin in anticipation for surgery Patient can eat clear liquid diet today and be n.p.o. after midnight Plan discussed with the patient and the nurse at bedside DVT and GI prophylaxis 10/07: Per surgery, Status post repair of femoral hernia postop day #1. Advance to full liquids. May discharge when tolerating full liquids. Follow-up with me in 1 week. Patient will need to avoid heavy lifting for 4 to 6 weeks. I discussed extensively with the patient about pain managmeent, she will follow with her pain doctor. I ordered ultram for her, just in case. Electrolyte is Disposition: 06 HOME HEALTH CARE SERVICE Final Discharge Diagnosis (Prints w/discharge instructions): Incarcerated left- sided femoral hernia s/p repair Time spent for discharge: 35 mins Core Measure Documentation - Palliative Care Palliative Care/ Comfort Measures: Not Applicable - Core Measures Any of the following diagnoses?: none Exam - Physical Exam Narrative exam: General appearance: Present: mild distress, just appears uncomfortable. Morbid obesity - EENT Eyes: Present: PERRL ENT: hearing intact, clear oral mucosa - Neck Neck: Present: supple, normal ROM - Respiratory Respiratory effort: normal Respiratory: bilateral: CTA - Cardiovascular Heart Sounds: Present: S1 & S2. Absent: rub, click - Extremities Extremities: pulses symmetrical, No edema Peripheral Pulses: within normal limits - Abdominal General gastrointestinal: Present: soft, non-tender, non-distended, normal bowel sounds Female genitourinary: Present: normal - Integumentary Integumentary: Present: clear, warm, dry - Musculoskeletal Musculoskeletal: strength equal bilaterally, gait not assessed at this time some discomfort on the left inguinal to femoral area. Bulging noted at the time. - Psychiatric Psychiatric: appropriate mood/affect, intact judgment & insight - Neurologic Neurologic: CNII-XII intact, moves all extremities - Constitutional Vitals: Temp Pulse Resp BP Pulse Ox 97.9 F 90 17 109/61 96 10/07/21 04:47 10/07/21 04:47 10/07/21 05:53 10/07/21 04:47 10/07/21 04:47 Plan Activity: advance as tolerated, fall precautions Diet: other (Full liquid for once week, advance to soft after following with surgeon and ok with it) Wound: per your surgeon's advice, per wound nurse instructions Special Instructions: physical therapy, home health RN Plan of Treatment: must be complaint with food recommendation. Full liquid until seen by surgeon in one week Follow up with: JEFFREY PELAEZ [Other] - 3-5 Days DIAZ ALBRIGHT MD [Staff Physician] - 7 Days Prescriptions: traMADoL [Ultram] 50 mg PO Q6HR PRN #14 tablet PRN Reason: Pain Ondansetron [Zofran Odt] 4 mg PO Q6H PRN #30 tab.rapdis PRN Reason: Nausea
[2021-10-07] MEDS: amLODIPine 10 MG TAB PO SCH (09:03)
[2021-10-07 10:49] LABS: Hematocrit 43.4 % (30.3-42.9); Hemoglobin 13.8 gm/dl (10.1-14.3); Mean Corpuscular HGB Conc 32 % (30-34); Mean Corpuscular Volume 85 fl (79-97); Red Blood Count 5.09 M/mm3 (3.65-5.03)
[2021-10-07 10:50] LABS: Platelet Count 220 K/mm3 (140-440); Red Cell Distribution Width 13.5 % (13.2-15.2)
[2021-10-07 11:36] LABS: BUN/Creatinine Ratio 19; Blood Urea Nitrogen 17 mg/dL (7-17); Calcium 8.7 mg/dL (8.4-10.2); Hemolysis Index 25
[2021-10-07 14:05] VITALS: BP 128/84
== END 2021-10-07 14:08 | disposition home health service (06) | DRG 351 ==
LOC: ED 09:22 → 3A 16:12 → OBSVTOIN 10-06 07:54
PROVIDERS: ADMIT Internal Medicine; ATTEND Internal Medicine
PROC: 0YQ80ZZ Repair Left Femoral Region, Open Approach (ICD-10-PCS; principal; 2021-10-06)
PROC: 0DBU0ZZ Excision of Omentum, Open Approach (ICD-10-PCS; 2021-10-06)
DX: K41.30 Unilateral femoral hernia, with obstruction, without gangrene, not specified as recurrent (principal); E87.1 Hypo-osmolality and hyponatremia; Z68.41 Body mass index [BMI] 40.0-44.9, adult; E87.6 Hypokalemia; I16.0 Hypertensive urgency; E66.01 Morbid (severe) obesity due to excess calories; I10 Essential (primary) hypertension; Z88.8 Allergy status to other drugs, medicaments and biological substances; Z82.49 Family history of ischemic heart disease and other diseases of the circulatory system
CPT/HCPCS: 36415; 74176; 74177; 80048; 80076; 81001; 83690; 83735; 84132; 85025; 85027; 88302; 88305; G0378; J1815; J3490; J7120; Q0162; J0330; J0360; J0690; J1170; J1885; J2405; J2704; J2710; J2765; J3010; J3475; J3480; J7030; Q9967